=== PATIENT | female | born 1985 | race Two or more races ===

== ENCOUNTER → 2016-10-28 | Outpatient (CLI) | payer MEDICAID | LOC: CIMAGING 12:34 | PROVIDERS: ATTEND Family Medicine | DX: E04.1 Nontoxic single thyroid nodule (principal) | CPT/HCPCS: 76536-PO ==

== ENCOUNTER 2017-06-13 08:31 | Emergency (ER) | payer MEDICAID ==
[2017-06-13] MEDS ORDERED: MECLIZINE HCL 25 MG TAB PO ONE (09:03)
[2017-06-13] MEDS ORDERED: ACETAMINOPHEN 325 MG TAB PO ONE (09:03)
[2017-06-13] MEDS ORDERED: IBUPROFEN 600 MG TAB PO ONE (09:04)
--- NOTE | 2017-06-13 09:23 | EDPHY ---
H & P Time Seen by Provider: 06/13/17 08:36 HPI/ROS: This patient complains of vertigo. Yesterday when she arose from a nap she developed a spinning sensation that"felt like her head was spinning". She reports associated nausea. Since then she has had persistent similar symptoms and found it difficult to drive this morning due to this being sensation in her head and came here for further evaluation. She reports that her symptoms diminished when she rests and hold still. They worsen when she moves her head. She has not had vertigo before. She reports exposure to her 4-year-old daughter who currently has a URI and has for the last week. This patient has no overt URI symptoms. She does report an occipital headache that is bilateral 4/10 intensity in achy in nature present at all times for the last 2 weeks occasionally improving somewhat with ibuprofen with no other exacerbating factors. She also reports upper posterior neck pain associated with this and by parietal headache that is less intensity occipital headache. She took 400 mg of ibuprofen this morning it 6:30 a.m.. No other exacerbating factors. She drove herself by private vehicle for evaluation here today. ROS: No fevers or chills. No other constitutional symptoms HEENT: No complaints. No recent head trauma. Neuro: As per HPI. She described bilateral hand paresthesias last night but none today and no other focal numbness tingling or weakness. No confusion. No on else in her family has headaches at this time. Pulmonary: No cough. No shortness of breath Cardiovascular: No chest pain or heart palpitations. GI. She reports nausea associated with her vertigo but no vomiting. No abdominal pain. Integumentary: No skin rash 10 point ROS is otherwise negative. Social History: Rare alcohol less than once a week. None over the last few days. No drug use. Nonsmoker. Mother of 3 children ages 4, 11 and 12, also works as a cash teller Smoking Status: Never smoked Physical Exam: Physical exam: Vital signs are normal General: Patient is in no acute distress. HEENT: The patient has bilateral occipital and parietal tenderness to palpation partially reproduces her symptoms. Eyes: Pupils are equal and reactive to light. Extraocular motions are intact. Optic fundi: Clear with no papilledema or hemorrhage. Nose atraumatic. Ears: Clear bilaterally with no hemotympanum. Oropharynx: No dental trauma or malocclusion. No intraoral lacerations. Eyes: Pupils are equal and reactive to light. Extraocular motions are intact. Optic fundi: Clear with no papilledema or hemorrhage. Lungs: Clear to auscultation bilaterally Neck: Supple no meningismus. Cardiac: Regular rate and rhythm no murmur gallop or rub. Abdomen: Soft nontender no organomegaly Neuro: GCS of 15. Cranial nerves II through XII intact. Cerebellar exam is normal as judged by symmetric in coordinated finger to nose bilaterally.. No pronator drift. No sensory or motor deficits are appreciated. She does have worsening of her vertigo with head movement. Initial differential diagnosis: Benign positional vertigo, tension headache, doubt central vertigo given exam, doubt migraine headache, carbon monoxide poisoning, SPIRAL BINDER lesion Constitutional: Initial Vital Signs Temperature (C) 37 C 06/13/17 08:35 Heart Rate 93 06/13/17 08:35 Respiratory Rate 16 06/13/17 08:35 Blood Pressure 106/73 06/13/17 08:35 O2 Sat (%) 98 06/13/17 08:35 O2 Delivery Mode Room Air Allergies/Adverse Reactions: No Known Allergies Allergy (Verified 06/13/17 08:44) Home Medications: Medication Instructions Recorded Fluticasone Nasal [Flonase Nasal 2 sprays NASAL DAILY #1 mdi 06/13/17 [facility] (RX)] Meclizine HCl [Meclizine HCl 25 mg 25 mg PO TID PRN #20 tab 06/13/17 (RX,OTC)] MDM/Departure - MDM Diagnostics: CT head without contrast: Normal per Dr. Naylor-radiologist. I also personally reviewed this film prior to her formal interpretation CT angio head and neck: Normal per Dr. Naylor-radiologist Imaging: Discussed imaging studies w/ call center director Radiologist Medications Given: Discontinued Medications Acetaminophen (Tylenol) 975 mg PO EDNOW ONE Stop: 06/13/17 09:04 Last Admin: 06/13/17 09:13 Dose: 975 mg Sodium Chloride (Ns) 1,000 mls @ 0 mls/hr IV ONCE ONE; Wide Open PRN Reason: Protocol Stop: 06/13/17 10:34 Last Admin: 06/13/17 10:53 Dose: 1,000 mls Ibuprofen (Motrin) 600 mg PO EDNOW ONE Stop: 06/13/17 09:05 Last Admin: 06/13/17 09:14 Dose: Not Given Meclizine HCl (Meclizine Hcl) 25 mg PO EDNOW ONE Stop: 06/13/17 09:04 Last Admin: 06/13/17 09:14 Dose: 25 mg ED Course/Re-evaluation: Tylenol and meclizine p. O.. I counseled patient regarding peripheral vertigo does, in particular benign positional vertigo. On recheck at 10:00 a.m. The patient reports no change in her headache still 4/ 10 occipital in location. Her vertigo however has improved somewhat. She is able to ambulate without holding onto anything at this point. Given her ongoing headache-present for 2 weeks the persists today despite ibuprofen Tylenol, this raises my concern a bit for SPIRAL BINDER lesion contributing to her vertigo. I placed a page in to Dr. Zuniga-neurologist on-call to discuss this case at 10:10 a.m. Given the patient's combination of occipital headache, posterior upper neck pain in vertigo, Dr. Zuniga recommends CT angio head and neck as well as plain CT head to rule out vertebral vascular disease or aneurysm/dissection as potential cause of symptoms. IV is established patient is treated with 1 L saline bolus. At noon the patient is back from CT head and CT angio neck and head and reports that she feels improved. She still has no occipital headache but is down to 2/ 10 intensity. Her vertigo has continue to improve that compared to when she initially arrived. She has no new complaints Discussion: Given lack of anyone else in her home with headaches comma do not think she has carbon monoxide poisoning. Given the patient's 2 week history of occipital headache and posterior neck pain and consultation with Neurology for we ruled out for TB rule basilar disease with normal CT angio head and neck and normal CT head rule out cerebellar lesions, strokes, bleed. Patient improved here with meclizine terms of her vertigo. I think the etiology of her headache is likely tension though it is unusual to last for 2 weeks and she denies any obvious new stressors in her life. However, no red flag findings with workup today that would suggest SPIRAL BINDER lesion or other concerning findings. Will have her follow up with ENT for any ongoing vertigo symptoms that persist beyond the next handful of days with plan to go home on Flonase steroid nasal spray and meclizine. She understands the need to return emergency department should she develop any significant worsening despite the treatment plan. - Depart Disposition: Home, Routine, Self-Care Clinical Impression: Benign positional vertigo Qualifiers: Laterality: unspecified laterality Qualified Code(s): H81.10 - Benign paroxysmal vertigo, unspecified ear Acute headache Qualifiers: Headache type: unspecified Intractability: not intractable Qualified Code(s): R51 - Headache Clinical Impression: (Ruled Out): Tension headache Condition: Good Instructions: Tension Headache (ED), Benign Paroxysmal Positional Vertigo (ED) Additional Instructions: Diagnoses: 1. Benign positional vertigo 2. Acute headache Your CT head, and angiogram of head and neck are all normal today. The cause of your vertigo is likely related to the inner ear as discussed. Plan: Humidifier Flonase steroid nasal spray Meclizine for spinning sensation if needed Ibuprofen and Tylenol as needed for headache. Your symptoms should improve over the next 3-7 days. If you're not improving, call Dr. Myers-ENT specialist for further evaluation. Return emergency department for any significant worsening despite the treatment plan Stand Alone Forms: Work Excuse Prescriptions: Fluticasone Nasal [Flonase Nasal Wright (RX)] 2 sprays NASAL DAILY #1 mdi Meclizine HCl [Meclizine HCl 25 mg (RX,OTC)] 25 mg PO TID PRN #20 tab PRN Reason: Vertigo Referrals: Hilda Coronado MD [Primary Care Provider] - As per Instructions Balwinder Myers MD [Medical Doctor] - As per Instructions
[2017-06-13] MEDS ORDERED: NS 1,000 ML IV ONE (10:33)
[2017-06-13] MEDS ORDERED: IOPAMIDOL (ISOVUE 370) 100 ML BTL IV ONE (11:28)
[2017-06-13 12:40] VITALS: BP 101/75
== END 2017-06-13 13:00 | disposition home or self-care (01) ==
LOC: CED 08:31
DX: H81.10 Benign paroxysmal vertigo, unspecified ear (principal); R51 Headache; E86.9 Volume depletion, unspecified
CPT/HCPCS: 70450-PO; 70496-PO; 70498-PO; Q9967